=== PATIENT | female | born 1965 | race African-American/Black ===

== ENCOUNTER 2016-11-29 20:37 | Emergency (ER) | payer OTHER | END 2016-11-30 00:51 | disposition home or self-care (01) | LOC: FER 20:37 | DX: E86.0 Dehydration (principal); Z88.0 Allergy status to penicillin; Z88.1 Allergy status to other antibiotic agents; Z88.5 Allergy status to narcotic agent; Z88.6 Allergy status to analgesic agent; Z88.8 Allergy status to other drugs, medicaments and biological substances; Z91.013 Allergy to seafood; Z98.84 Bariatric surgery status | CPT/HCPCS: 99283 ==

== ENCOUNTER 2021-05-29 14:48 | Emergency (ER) | payer OTHER ==
[~2021-05-29 14:48] MED LIST: ATIVAN1 MG PO; BACITRACIN3.5 GM TD; BENADRYL12.5 MG/5 PO; CATAPRES 0.2MG0.2 MG TOP; COZAAR50 MG PO; ENOXAPARIN100 MG/1 M SC/PO; HYDRALAZINE25 MG PO; NORVASC5 MG PO; OXYCODONE PO; PHENERGAN25 M1 PR; POT CHLOR PO; PROMETHEGA12.5 MG/SU PO; PROTONIX40 M1 PO; ZOFRAN4 MG PO
[2021-05-29 16:04] LABS: HCT 36.9 % (37.0-47.0); HGB 12.2 g/dl (12.5-16.0); MCH 28.8 pg (25.0-31.0); MCHC 33.1 g/dL (32.0-36.0); MPV 11.1 fL (6.0-9.5); RBC 4.24 M/uL (4.20-5.40); RDW 13.4 % (11.5-14.0); WBC 11.8 K/uL (4.0-10.5)
[2021-05-29 17:16] LABS: BUN/CREAT RATIO (CALC) 16.4 RATIO; CREATININE 0.67 mg/dL (0.51-0.95); POTASSIUM 3.5 mmol/L (3.5-5.1)
[2021-05-29] MEDS ORDERED: TYLENOL650 MG PR (22:53)
[2021-05-29] MEDS ORDERED: PROMETHEGA12.5 MG/SU PR (22:53)
[2021-05-29] MEDS ORDERED: AZITHROMYC200 MG/5 M PO (22:53)
[2021-05-29 23:40] LABS: INFLUENZA A NAA NEGATIVE (NEGATIVE)
[2021-05-29 23:42] LABS: CORONAVIRUS 2019 SARS-COV-2 POSITIVE (NEGATIVE)
== END 2021-05-29 23:06 | disposition home or self-care (01) ==
LOC: FER 14:48
PROVIDERS: Emergency Medicine; Emergency Medicine Emergency Medical Services
DX: U07.1 COVID-19 (principal); J45.909 Unspecified asthma, uncomplicated; I10 Essential (primary) hypertension; Z23 Encounter for immunization; Z88.0 Allergy status to penicillin; Z88.2 Allergy status to sulfonamides; Z88.6 Allergy status to analgesic agent
CPT/HCPCS: 36415; 71275; 80048; 84484; 85379; 93005; J1170; J1200; J1885; J2405; J2930; J7030; M0243; Q0244; Q9967; U0002

== ENCOUNTER 2022-01-05 18:24 | Emergency (ER) | payer OTHER ==
[~2022-01-05 18:24] MED LIST changes: +AZITHROMYC200 MG/5 M PO; +PROMETHEGA12.5 MG/SU PR; +TYLENOL650 MG PR
[2022-01-05 20:45] LABS: CORONAVIRUS 2019 SARS-COV-2 NEGATIVE (NEGATIVE); INFLUENZA A NAA NEGATIVE (NEGATIVE)
[2022-01-05 21:14] LABS: BASOPHIL 0.7 % (0-2); EOSINOPHIL 5.1 % (0-5); HCT 38.3 % (37.0-47.0); HGB 12.1 g/dl (12.5-16.0); LYMPHOCYTE 26.5 % (15-48); MCHC 31.6 g/dL (32.0-36.0); MCV 91.8 fL (78.0-100.0); MONOCYTE 7.4 % (0-12); MPV 11.1 fL (6.0-9.5); NEUTROPHIL 60.1 % (41-80); NRBC 0; PLT 263 K/uL (150-400); RBC 4.17 M/uL (4.20-5.40); RDW 14.2 % (11.5-14.0); WBC 8.1 K/uL (4.0-10.5)
[2022-01-05 21:25] LABS: INR 1.11 (0.9-1.2); PTT 26.2 SECONDS (24.9-34.6)
[2022-01-05 21:33] LABS: ALBUMIN 3.5 g/dL (3.4-5.0); BILIRUBIN - TOTAL 0.7 mg/dL (0.2-1.0); BUN/CREAT RATIO (CALC) 17.8 RATIO; CREATININE 0.9 mg/dL (0.51-0.95); GLOBULIN (CALCULATION) 4.4 g/dL; POTASSIUM 3.2 mmol/L (3.5-5.1); TOTAL PROTEIN 7.9 g/dL (6.4-8.2)
[2022-01-05] MEDS ORDERED: NORCO 5-325 TA1 EACH PO (23:24)
[2022-01-05] MEDS ORDERED: PROMETHEGAN12.5 MG PR (23:24)
[2022-01-05] MEDS ORDERED: ONDANSETRON ODT4 MG PO (23:24)
[2022-01-05] MEDS ORDERED: PHENERGAN25 M1 PO (23:24)
== END 2022-01-06 08:11 | disposition home or self-care (01) ==
LOC: FER 18:24
PROVIDERS: Emergency Medicine; Internal Medicine
DX: R10.9 Unspecified abdominal pain (principal); R11.2 Nausea with vomiting, unspecified; R05.9 Cough, unspecified; E86.0 Dehydration; Z88.0 Allergy status to penicillin; Z88.2 Allergy status to sulfonamides; Z91.013 Allergy to seafood; Z88.1 Allergy status to other antibiotic agents; Z20.822 Contact with and (suspected) exposure to COVID-19
CPT/HCPCS: 36415; 71045; 80053; 84145; 84484; 85025; 85610; 85730; 93005; 96372; J1100; J1170; J1650; J2405; J2550; J3480; J7030; J7120; U0002